=== PATIENT | female | born 2000 | race Caucasian/White ===

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

== ENCOUNTER 2021-09-16 12:42 | Outpatient (CLI) | payer BC, MEDICAID, SELFPAY ==
--- NOTE | 2021-09-16 12:47 | US_ITS ---
WS: [id number] ULTRASOUND THYROID TECHNIQUE: Ultrasound of the thyroid. CLINICAL INFORMATION: NONTOXIC GOITER/FAMILY HX OF OTHER ENDOCRINE DZ COMPARISON: None. FINDINGS: Thyroid: Right and left thyroid lobes are normal in size and echotexture. Complex heterogeneous cystic and solid nodule right mid thyroid with lobulated margins measures appro ximately 9.1 x 7.6 x 8.9 mm with increased vascularity. Internal echogenic foci of with cystic and so lid components. Recommend further evaluation with FNA. Tiny hypoechoic nodule left mid thyroid measuring 3.6 x 3.1 x 4.8 mm Right thyroid lobe: 4.6 cm x 1.7 cm x 1.5 cm Left thyroid lobe: 3.9 cm x 1.3 cm x 1.4 cm. Isthmus: 0.3 mm. Cervical lymphadenopathy: None. US/US thyroid [id number] IMPRESSION: 1. Complex heterogeneous cystic and solid nodule right mid thyroid measures ap proximately 9.1 x 7.6 x 8.9 mm with increased vascularity. Recommend further ev aluation with ultrasound-guided FNA. 2. Tiny hypoechoic nodule left mid thyroid measuring 3.6 x 3.1 x 4.8 mm
== END 2021-09-16 12:43 | disposition home or self-care (01) ==
LOC: RAD 12:45
PROVIDERS: PCP Nurse Practitioner Family; Visit Provider Student in an Organized Health Care Education/Training Program
DX: E04.9 Nontoxic goiter, unspecified (principal); Z83.49 Family history of other endocrine, nutritional and metabolic diseases; R79.89 Other specified abnormal findings of blood chemistry; E04.2 Nontoxic multinodular goiter
CPT/HCPCS: 76536

== ENCOUNTER 2022-04-26 08:08 | Emergency (ER) | payer BC, MEDICAID, SELFPAY ==
[2022-04-26 08:14] VITALS: BP 128/71; PULSE 112; RESP 14; TEMP 36.9; O2SAT 99; BMI 20.5
[2022-04-26 08:25] VITALS: BP 128/71; PULSE 112; RESP 14; TEMP 36.9; O2SAT 99
--- NOTE | 2022-04-26 08:39 | W.ED.ALLEREA ---
HPI - Allergic Reaction General: Chief complaint: Allergic Reaction Stated complaint: Allergic rx, itchiness and burning Time Seen by Provider: 04/26/22 08:26 History of Present Illness: HPI narrative: Patient comes in with a rash concerning for allergic reaction. States she woke up this morning with numerous erythematous papules on her extremities, and trunk. States that she took Benadryl which helped improve the itching. She denies any shortness of breath, difficulty swallowing, vomiting, or diarrhea. States no new medications or detergents/soap/shampoo. States that she did mow the lawn a couple of days ago and then last night her dog slept in the bed with her. Associated symptoms: Deny abdominal pain, nausea or vomiting Review of Systems Const: Denies: fever(s) or body aches Eyes: Denies: change in vision or blurry vision ENMT: Denies: throat pain or odynophagia Card: Denies: chest pain or palpitations Resp: Denies: dyspnea or productive cough GI: Denies: abdominal pain, nausea or vomiting : Denies: flank pain or dysuria Musc: Denies: neck pain or back pain Skin/Breast: Reports: rash and pruritus Neuro: Denies: headache(s) or numbness in extremities Psych: Denies: anxiety or change in appetite Endo: Denies: polyuria or excessive sweating PFSH ED PFSH: Medical History Anxiety Chronic sinusitis Depression GERD (gastroesophageal reflux disease) IBS (irritable bowel syndrome) Surgical History No history of previous surgery Family History Mother Graves disease ALS (amyotrophic lateral sclerosis) Lung disease Father GERD (gastroesophageal reflux disease) Hyperlipidemia Hypertension Anxiety Social History Smoking and tobacco status: current every day smoker e-cigarettes E-Cigarette Details: vaporizer device E-cig/vape details: uses twice a day Alcohol intake: never Physical Exam Const: COMMON NORMALS: no acute distress, patient oriented x3, healthy appearing and alert HENMT: COMMON NORMALS: normocephalic and atraumatic HEAD & SCALP: normocephalic and atraumatic Eye: COMMON NORMALS: Equal, round and reactive pupils present and EOMs intact bilaterally PUPIL: Yes Equal, round and reactive pupils present Neck/C-Spine: COMMON NORMALS: full ROM and supple Resp: COMMON NORMALS: normal respiratory effort, No retractions and No use of accessory muscles Cardio: COMMON NORMALS: regular rate and regular rhythm RATE: regular rate RHYTHM: regular rhythm GI: COMMON NORMALS: Normal to inspection, nondistended, normoactive bowel sounds present, Soft to palpation and non-tender PALPATION: Yes Soft to palpation Back/Pelvis: COMMON NORMALS: thoracic and lumbar spine normal to inspection and no thoracic nor lumbar tenderness Extremity: COMMON NORMALS: normal to inspection and full ROM Neuro: COMMON NORMALS: patient oriented x3 SENSORIUM/ORIENTATION: Yes alert Psych: COMMON NORMALS: mental status grossly normal and cooperative Skin: OTHER: Numerous erythematous papules on extremities and trunk consistent with hives Course Vital Signs: Vital signs: Vital Signs Temperature 98.5 F 04/26/22 08:25 Pulse Rate 112 H 04/26/22 08:25 Respiratory Rate 14 04/26/22 08:25 Blood Pressure 128/71 04/26/22 08:25 Pulse Oximetry 99 04/26/22 08:25 MDM - Allergic Reaction Medical Decision Making Patient comes in with a rash concerning for allergic reaction. States she woke up this morning with numerous erythematous papules on her extremities, and trunk. States that she took Benadryl which helped improve the itching. She denies any shortness of breath, difficulty swallowing, vomiting, or diarrhea. States no new medications or detergents/soap/shampoo. States that she did mow the lawn a couple of days ago and then last night her dog slept in the bed with her. We will start her on steroids, and discharged with precautions to return for worsening or changing symptoms. Discharge Plan Discharge Patient Disposition: Home Clinical Impression: Allergic reaction Condition: Stable Prescriptions: New prednisone 20 mg tablet 60 mg PO DAILY 4 Days Qty: 12 0RF No Action dicyclomine 10 mg capsule 20 mg PO QID 0RF Viibryd 10 mg tablet 10 mg PO DAILY 0RF Rx Instructions: must administer with a meal/food norgestimate-ethinyl estradiol [Ortho Tri-Cyclen (28)] 0.18/0.215/0.25 mg-35 mcg (28) tablet 1 tab PO DAILY 0RF omeprazole 20 mg capsule,delayed release(DR/EC) 20 mg PO DAILY 0RF Zyrtec 10 mg capsule 10 mg PO BID 0RF fluticasone propionate 50 mcg/actuation spray,suspension 1 spray intranasal BID 0RF Rx Instructions: administer into each nostril metoprolol tartrate 25 mg tablet 12.5 mg PO BID Qty: 90 3RF Discharge Orders: Discharge ED (Routine); Ordered 04/26/22 Ordered By: Ervin Huffman Referrals: Merlene Alcaraz FNP [Primary Care Provider] - Patient Instructions: Allergic Reaction 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
[2022-04-26] MEDS: predniSONE 20 mg Tablet 60 MG PO (08:41)
[2022-04-26 08:44] VITALS: BP 128/71; PULSE 112; RESP 14; TEMP 36.9; O2SAT 99
== END 2022-04-26 08:50 | disposition home or self-care (01) ==
PROVIDERS: Emergency Provider Emergency Medicine; PCP Nurse Practitioner Family
DX: T78.40XA Allergy, unspecified, initial encounter (principal)
CPT/HCPCS: 99283; J7512

== ENCOUNTER 2022-04-27 01:17 | Emergency (ER) | payer BC, MEDICAID, SELFPAY ==
[2022-04-27 01:24] VITALS: BP 123/68; PULSE 70; RESP 18; TEMP 36.6; O2SAT 100; BMI 20.2
--- NOTE | 2022-04-27 01:29 | W.ED.ALLEREA ---
HPI - Allergic Reaction General: Chief complaint: Allergic Reaction Stated complaint: allergic reaction Time Seen by Provider: 04/27/22 01:28 History of Present Illness: HPI narrative: 21-year-old female comes in today for complaints of itching and rash. Patient was seen on the at about 8:00 in the morning and was given 60 mg of prednisone for similar rash. Tonight patient had increased itching and burning of the skin and was concern for worsening rash. Patient appears nontoxic. Patient reports no pain. Patient does report a temperature of 99. Review of Systems General: Reports: 10 or more systems reviewed and unremarkable except in HPI and below Const: Reports: chills Card: Denies: chest pain Resp: Denies: dyspnea Skin/Breast: Reports: rash PFSH ED PFSH: Medical History Anxiety Chronic sinusitis Depression GERD (gastroesophageal reflux disease) IBS (irritable bowel syndrome) Surgical History No history of previous surgery Family History Mother Graves disease ALS (amyotrophic lateral sclerosis) Lung disease Father GERD (gastroesophageal reflux disease) Hyperlipidemia Hypertension Anxiety Social History Smoking and tobacco status: current every day smoker e-cigarettes E-Cigarette Details: vaporizer device E-cig/vape details: uses twice a day Alcohol intake: never Physical Exam Const: COMMON NORMALS: alert HENMT: COMMON NORMALS: normocephalic HEAD & SCALP: normocephalic THROAT: posterior oropharynx normal Neck/C-Spine: COMMON NORMALS: full ROM Resp: COMMON NORMALS: normal respiratory effort and clear to auscultation bilaterally AUSCULTATION: clear to auscultation bilaterally Cardio: COMMON NORMALS: regular rate and regular rhythm RATE: regular rate RHYTHM: regular rhythm GI: PALPATION: No Tenderness to palpation present (GI) Extremity: COMMON NORMALS: normal to inspection Neuro: SENSORIUM/ORIENTATION: Yes alert Skin: RASHES: rashes noted (Generalized urticaria) Course Vital Signs: Vital signs: Vital Signs Temperature 97.8 F 04/27/22 01:24 Pulse Rate 70 04/27/22 01:24 Respiratory Rate 18 04/27/22 01:24 Blood Pressure 123/68 04/27/22 01:24 Pulse Oximetry 100 04/27/22 01:24 MDM - Allergic Reaction Medical Decision Making Patient comes in this evening for increase in urticaria. Patient appears well. Patient appears in no acute distress. Lungs are clear to auscultation. Evaluation patient with no a generalized urticarial rash. Vital signs are normal. Differential diagnosis includes allergic reaction, adverse drug effect, idiopathic urticaria. Patient already been seen once in the last 24 hours and was started on prednisone. Patient was given a dose of Solu-Medrol and a dose of Benadryl this evening. Patient was also given 1 dose of famotidine 40 mg. Reviewed exam with patient with recommendations for continued treatment with hydroxyzine and continuation of prednisone as directed. Discussed need to drink plenty of fluids of medication and avoidance of extreme temperatures, spicy foods and acidic foods. Discussed need to return to the ER for shortness of breath. Discussed other recommendations for further treatment and evaluation with primary care. Discharge Plan Discharge Clinical Impression: Urticaria Condition: Stable Prescriptions: New hydroxyzine HCl 25 mg tablet 25 mg PO Q6H PRN (Reason: itching) Qty: 20 0RF No Action dicyclomine 10 mg capsule 20 mg PO QID 0RF Viibryd 10 mg tablet 10 mg PO DAILY 0RF Rx Instructions: must administer with a meal/food norgestimate-ethinyl estradiol [Ortho Tri-Cyclen (28)] 0.18/0.215/0.25 mg-35 mcg (28) tablet 1 tab PO DAILY 0RF omeprazole 20 mg capsule,delayed release(DR/EC) 20 mg PO DAILY 0RF Zyrtec 10 mg capsule 10 mg PO BID 0RF fluticasone propionate 50 mcg/actuation spray,suspension 1 spray intranasal BID 0RF Rx Instructions: administer into each nostril metoprolol tartrate 25 mg tablet 12.5 mg PO BID Qty: 90 3RF prednisone 20 mg tablet 60 mg PO DAILY 4 Days Qty: 12 0RF Referrals: Merlene Alcaraz FNP [Primary Care Provider] - Discharge Diet: Usual diet Discharge Activity: Increase activity as tolerated Patient Instructions: Urticaria (ED) Activity Restrictions/Additional Instructions: Continue with prednisone as prescribed. Drink plenty of water and fluids with medication. Use hydroxyzine 1 tablet every 6 hours as needed for itching. Continue with Zyrtec or Claritin twice a day routinely to help control rash. Usually urticarial take 3- 5 days to clear up. Follow-up with primary care for further instruction and referral for allergen evaluation if needed. Return to ER for difficulty breathing. 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
[2022-04-27 01:45] VITALS: BP 120/86; PULSE 73; RESP 18; O2SAT 100
[2022-04-27] MEDS: sodium chloride 0.9% 500 ML 999 ML IV (01:45)
[2022-04-27] MEDS: diphenhydrAMINE 50 mg/mL SDV 1mL 25 MG IVP (01:46)
[2022-04-27 02:15] VITALS: BP 120/70; PULSE 67; RESP 18; O2SAT 100
[2022-04-27] MEDS: famotidine 20 mg/2 mL INJ 40 MG IVP (02:19)
[2022-04-27 02:30] VITALS: BP 122/76; PULSE 86; RESP 18; O2SAT 96
== END 2022-04-27 02:30 | disposition home or self-care (01) ==
PROVIDERS: Emergency Provider Nurse Practitioner Family; PCP Nurse Practitioner Family
DX: L50.9 Urticaria, unspecified (principal)
CPT/HCPCS: 96361; 96374; 96375; 99284; J1200; J2930; J3490; J7040

== ENCOUNTER → 2022-10-20 15:27 | Outpatient (BNVA) | payer BC, MEDICAID, SELFPAY | PROVIDERS: PCP Nurse Practitioner Family; Visit Provider Nurse Practitioner Family | DX: R10.32 Left lower quadrant pain (principal) | CPT/HCPCS: 74018 ==

== ENCOUNTER 2023-03-25 01:51 | Emergency (ER) | payer BC, MEDICAID, SELFPAY ==
[2023-03-25 02:00] VITALS: BP 113/56; PULSE 82; RESP 16; TEMP 36.4; O2SAT 98; BMI 21.4
[2023-03-25 02:07] VITALS: BP 113/56; PULSE 83; RESP 16; O2SAT 100
--- NOTE | 2023-03-25 02:08 | W.ED.NAVMDI ---
HPI - Nausea/Vomiting/Diarrhea General: Chief complaint: Nausea/Vomiting/Diarrhea Stated complaint: n/v Time Seen by Provider: 03/25/23 01:58 Source: patient Mode of arrival: ambulatory Limitations: no limitations History of Present Illness: 22-year-old female states she started having nausea vomiting along with some diarrhea over the last 3 to 4 hours. States she had severe vomiting and vomited multiple times she has had some abdominal cramping she denies any fevers. She states she is a habitual cannabis abuser did last use this evening. Denies any fevers denies any dysuria. Associated nausea: Yes Associated symtoms: Reports nausea; Denies chest pain or dysuria Review of Systems Const: Denies: fever(s), chills, body aches or change in appetite Eyes: Denies: eye discomfort ENMT: Denies: throat pain or dental pain Card: Denies: chest pain Resp: Denies: dyspnea GI: Reports: abdominal pain, nausea and vomiting; Denies: diarrhea : Denies: dysuria Musc: Denies: neck pain or back pain Skin/Breast: Denies: rash All/Imm: Denies: urticaria PFSH ED PFSH: Medical History Anxiety Chronic sinusitis Depression GERD (gastroesophageal reflux disease) IBS (irritable bowel syndrome) Surgical History No history of previous surgery Family History Mother Graves disease ALS (amyotrophic lateral sclerosis) Lung disease Father GERD (gastroesophageal reflux disease) Hyperlipidemia Hypertension Anxiety Social History Smoking and tobacco status: current every day smoker e-cigarettes E-Cigarette Details: vaporizer device E-cig/vape details: uses twice a day Alcohol intake: never Substance/Drug Use: never Female Reproductive History: Date of last menstrual period: 03/18/23 Physical Exam Const: COMMON NORMALS: no acute distress, patient oriented x3 and healthy appearing HENMT: COMMON NORMALS: normocephalic and atraumatic HEAD & SCALP: normocephalic and atraumatic Eye: COMMON NORMALS: conjunctivae normal CONJUNCTIVA: Yes conjunctivae normal Neck/C-Spine: COMMON NORMALS: full ROM and supple Chest: COMMONS NORMALS: normal inspection of the chest Resp: COMMON NORMALS: normal respiratory effort, No retractions, No use of accessory muscles and clear to auscultation bilaterally AUSCULTATION: clear to auscultation bilaterally Cardio: COMMON NORMALS: regular rate, regular rhythm and No murmurs present (Cardio) RATE: regular rate RHYTHM: regular rhythm GI: COMMON NORMALS: Normal to inspection, nondistended, normoactive bowel sounds present, Soft to palpation, non-tender and no masses PALPATION: Yes Soft to palpation Extremity: COMMON NORMALS: normal to inspection and full ROM Neuro: COMMON NORMALS: patient oriented x3, moves all extremities and no focal motor deficits Psych: COMMON NORMALS: mental status grossly normal, Normal thought process present and cooperative THOUGHT PROCESS: Normal thought process present Skin: COMMON NORMALS: no rashes or lesions noted and no wounds GENERAL SKIN EXAM: no rashes or lesions noted Course Vital Signs: Vital signs: Vital Signs Temperature 97.5 F L 03/25/23 02:00 Pulse Rate 83 03/25/23 02:07 Respiratory Rate 16 03/25/23 02:58 Blood Pressure 122/68 03/25/23 02:58 Pulse Oximetry 99 03/25/23 02:58 Oxygen Delivery Me thod Room Air 03/25/23 02:00 MDM - Nausea/Vomiting/Diarrhea Medical Decision Making Patient presents here with nausea and vomiting that is resolved here after Reglan she feels much improved here after Reglan and fluids blood work here is normal she is stable for discharge we will prescribe her Zofran she is to follow-up with PCP and return if worsening. Lab Data 03/25/23 02:15 03/25/23 02:15 Laboratory Results WBC 8.8 10^3/uL (4.0-10.0) 03/25/23 02:15 RBC 4.09 10^6/uL (4.1-5.3) L 03/25/23 02:15 Hgb 11.7 g/dL (11.5-15.3) 03/25/23 02:15 Hct 34.8 % (37.0-47.0) L 03/25/23 02:15 MCV 85.1 fl (81-99) 03/25/23 02:15 MCH 28.6 pg (28.0-34.0) 03/25/23 02:15 MCHC 33.6 g/dL (30.0-36.0) 03/25/23 02:15 RDW 12.1 % (12.1-15.1) 03/25/23 02:15 Plt Count 209 10^3/cmm (130-400) 03/25/23 02:15 MPV 9.7 fL (7.4-10.4) 03/25/23 02:15 Neut % (Auto) 69.9 % 03/25/23 02:15 Lymph % (Auto) 25.4 % 03/25/23 02:15 Overton % (Auto) 3.9 % 03/25/23 02:15 Eos % (Auto) 0.5 % 03/25/23 02:15 Baso % (Auto) 0.1 % 03/25/23 02:15 Neut # (Auto) 6.14 10^3/uL (1.8-7.7) 03/25/23 02:15 Lymph # (Auto) 2.2 10^3/uL (0.8-4.8) 03/25/23 02:15 Overton # (Auto) 0.3 10^3/uL (0.2-0.9) 03/25/23 02:15 Eos # (Auto) 0.0 10^3/uL (0.0-0.8) 03/25/23 02:15 Baso # (Auto) 0.0 10^3/uL (0.0-0.1) 03/25/23 02:15 Nucleated RBC % (auto) 0 % 03/25/23 02:15 Nucleated RBCs # 0.0 /100WBC 03/25/23 02:15 Sodium 135 mmol/L (136-145) L 03/25/23 02:15 Potassium 3.4 mmol/L (3.5-5.1) L 03/25/23 02:15 Chloride 98 mmol/L (98-107) 03/25/23 02:15 Carbon Dioxide 23 mmol/L (22-29) 03/25/23 02:15 Anion Gap 17.4 (5-19) 03/25/23 02:15 BUN 9 mg/dL (6-20) 03/25/23 02:15 Creatinine 0.5 mg/dL (0.5-0.9) 03/25/23 02:15 GFR Calculation 155.7 mL/min (90-130) H 03/25/23 02:15 Glucose 140 mg/dL (65-115) H 03/25/23 02:15 Calculated Osmolality 281 mOsm/kg (285-295) L 03/25/23 02:15 Calcium 9.5 mg/dL (8.5-10.5) 03/25/23 02:15 Total Bilirubin 0.4 mg/dL (0.15-1.2) 03/25/23 02:15 AST 18 U/L (0-32) 03/25/23 02:15 ALT 10 U/L (0-33) 03/25/23 02:15 Alkaline Phosphatase 49 U/L (35-105) 03/25/23 02:15 Total Protein 7.2 g/dL (6.6-8.7) 03/25/23 02:15 Albumin 4.4 g/dL (3.5-5.2) 03/25/23 02:15 Globulin 2.8 g/dL (1.3-4.6) 03/25/23 02:15 HCG, Qual Negative (Negative) 03/25/23 02:15 Discharge Plan Discharge Patient Disposition: Home Clinical Impression: Vomiting Condition: Stable Prescriptions: New ondansetron 4 mg tablet,disintegrating 4 mg PO Q6H PRN (Reason: nausea and vomiting) Qty: 14 0RF No Action dicyclomine 10 mg capsule 20 mg PO QID Viibryd 10 mg tablet 10 mg PO DAILY Rx Instructions: must administer with a meal/food norgestimate-ethinyl estradiol [Ortho Tri-Cyclen (28)] 0.18/0.215/0.25 mg-35 mcg (28) tablet 1 tab PO DAILY omeprazole 20 mg capsule,delayed release(DR/EC) 20 mg PO DAILY Zyrtec 10 mg capsule 10 mg PO BID fluticasone propionate 50 mcg/actuation spray,suspension 1 spray intranasal BID Rx Instructions: administer into each nostril metoprolol tartrate 25 mg tablet 12.5 mg PO BID Qty: 90 3RF hydroxyzine HCl 25 mg tablet 25 mg PO Q6H PRN (Reason: itching) Qty: 20 0RF Discharge Orders: Discharge ED (Routine); Ordered 03/25/23 Ordered By: Kait Monae Referrals: Merlene Alcaraz FNP [Primary Care Provider] - 1-3 days Discharge Diet: Advance as tolerated Discharge Activity: Resume usual activity Patient Instructions: Acute Nausea and Vomiting (ED) Coding Level of Care Code ED Traffic Recorder for Catalino Leon
[2023-03-25] MEDS: diphenhydrAMINE 50 mg/mL SDV 1mL IVP (02:11)
[2023-03-25] MEDS: metoclopramide 5 mg/mL SDV 2 mL 10 MG IVP (02:11)
[2023-03-25] MEDS: sodium chloride 0.9% 1,000 ML 999 ML IV (02:11)
[2023-03-25 02:19] LABS: Basophils % 0.1 %; Eosinophils % 0.5 %; Hematocrit 34.8 % (37.0-47.0); Hemoglobin 11.7 g/dL (11.5-15.3); Lymphocytes # 2.2 10^3/uL (0.8-4.8); Lymphocytes % 25.4 %; Mean Corpuscular HGB Conc 33.6 g/dL (30.0-36.0); Mean Corpuscular Hemoglobin 28.6 pg (28.0-34.0); Mean Corpuscular Volume 85.1 fl (81-99); Mean Platelet Volume 9.7 fL (7.4-10.4); Monocytes # 0.3 10^3/uL (0.2-0.9); Monocytes % 3.9 %; Neutrophils # 6.14 10^3/uL (1.8-7.7); Neutrophils % 69.9 %; Nucleated Red Blood Cells % 0 %; Platelet Count 209 10^3/cmm (130-400); Red Blood Count 4.09 10^6/uL (4.1-5.3); Red Cell Distribution Width 12.1 % (12.1-15.1); White Blood Count 8.8 10^3/uL (4.0-10.0)
[2023-03-25 02:31] LABS: HCG, Serum Qual Negative (Negative)
[2023-03-25 02:35] LABS: Alanine Aminotransferase 10 U/L (0-33); Albumin Level 4.4 g/dL (3.5-5.2); Alkaline Phosphatase 49 U/L (35-105); Anion Gap 17.4 (5-19); Aspartate Amino Transferase 18 U/L (0-32); Blood Urea Nitrogen 9 mg/dL (6-20); Calcium 9.5 mg/dL (8.5-10.5); Carbon Dioxide 23 mmol/L (22-29); Chloride 98 mmol/L (98-107); Globulin 2.8 g/dL (1.3-4.6); Glomerular Filtration Rate 155.7 mL/min (90-130); Glucose 140 mg/dL (65-115); Osmolality Calculated 281 mOsm/kg (285-295); Potassium 3.4 mmol/L (3.5-5.1); Sodium 135 mmol/L (136-145); Total Bilirubin 0.4 mg/dL (0.15-1.2); Total Protein 7.2 g/dL (6.6-8.7)
[2023-03-25 02:58] VITALS: BP 122/68; RESP 16; O2SAT 99
[2023-03-25 03:07] LABS: Add Urine Culture? No; Add Urine Microscopic? YES; Bacteria Urine 2+ /hpf; Bilirubin Urine Neg (Negative); Blood Urine Neg (Negative); Glucose Urine UA Norm (Normal); Ketones Urine 2+ (Negative); Leukocyte Esterase Urine Negative (Negative); Mucus Urine 2+ /hpf; Nitrate Urine Negative (Negative); Protein Urine Neg (Negative); Urine Appearance Hazy (CLEAR); Urine Color Yellow (Yellow); Urobilinogen Urine Neg (Negative); WBC Urine 0-4 /hpf (0-5); pH Urine 7 (5-7)
[2023-03-25] MEDS: ondansetron 4 MG Tablet PO (03:08)
[2023-03-25 03:10] VITALS: BP 119/64; PULSE 73; RESP 16; O2SAT 100
--- NOTE | 2023-03-25 03:12 | PC.NURSE ---
After discussing discharge w/ MD, pt opted to not wait for the 2nd ordered L of 0.9% NS and stated this to MD. Pt stated that she was feeling better and just needed some sleep. Nurse confirmed this wish with pt. Pt discharged home.
[2023-03-25 03:17] VITALS: BP 119/64; PULSE 73; RESP 16; TEMP 36.4; O2SAT 100
== END 2023-03-25 03:17 | disposition home or self-care (01) ==
PROVIDERS: Emergency Provider Emergency Medicine; PCP Nurse Practitioner Family
DX: R11.10 Vomiting, unspecified (principal)
CPT/HCPCS: 80053; 81001; 84703; 85025; 96361; 96374; 96375; 99284; J1200; J2765; J7030; Q0162

== ENCOUNTER → 2023-05-02 11:30 | Outpatient (BNVA) | payer BC, MEDICAID, SELFPAY | PROVIDERS: PCP Nurse Practitioner Family; Visit Provider Nurse Practitioner Family | DX: M79.672 Pain in left foot (principal) | CPT/HCPCS: 73620 ==

== ENCOUNTER 2024-02-09 06:39 | Outpatient (CLI) | payer BC, MEDICAID, SELFPAY ==
--- NOTE | 2024-02-09 06:45 | US_ITS ---
WS: [id number] RIGHT UPPER QUADRANT ULTRASOUND HISTORY: epigastric pain COMPARISON: None available. Liver: 15.0 cm in length. Normal size liver and echogenicity. No bile duct dilatation or mass. Portal Vein: Normal hepatopetal flow with monophasic waveform. Gallbladder: Normally distended with no stones. No wall thickening. There is a tiny gallbladder polyp measuring 3 x 3 x 2 mm. CBD: 0.3 cm Pancreas: Normal size and echogenicity. Right kidney: 11.2 cm in length. Normal size and echogenicity. No hydronephrosis or mass. Aorta and IVC: Unremarkable abdominal aorta and IVC. No ascites. IMPRESSION: 1. Very tiny hyperplastic gallbladder polyp. No stones. 2. Remaining RIGHT upper quadrant is negative.
== END 2024-02-09 06:40 | disposition home or self-care (01) ==
LOC: RAD 06:39
PROVIDERS: PCP Nurse Practitioner Family; Visit Provider Surgery
DX: K21.9 Gastro-esophageal reflux disease without esophagitis (principal); K82.4 Cholesterolosis of gallbladder
CPT/HCPCS: 76705

== ENCOUNTER 2024-03-14 10:58 | Day surgery (SDC) | payer BC, MEDICAID, SELFPAY ==
[2024-03-14] MEDS: sodium chloride 0.9% 1,000 ML 30 ML IV (11:22)
[2024-03-14 11:36] VITALS: BP 129/59; PULSE 64; RESP 18; TEMP 36.8; O2SAT 99
[2024-03-14 11:38] VITALS: BMI 23.1
[2024-03-14 11:41] LABS: OR HCG Qualitative Urine Negative (Negative)
--- NOTE | 2024-03-14 12:44 | ANES.PREANE2 ---
Pre-Anesthetic Assessment Height/Weight: Height 1.63 m Weight 61.235 kg Temp Pulse Resp BP Pulse Ox O2 Del Method 98.2 F 64 18 129/59 99 Room Air 03/14/24 11:36 03/14/24 11:36 03/14/24 11:36 03/14/24 11:36 03/14/24 11:36 03/14/24 11:36 Preop Diagnosis: gerd Operation Date: 03/14/24 12:15 Proposed Procedures p EGD(Not Applicable) - Ady Miranda, DO Was Beta Raymon taken within 24 hours: N/A Was Clonidine taken within 24 hours: N/A Last intake: Intake Last Liquid Date 03/13/24 Last Liquid Time 22:30 Last Solid Date 03/13/24 Last Solid Time 21:30 Social No alcohol vapes, thc daily Exam alert, oriented x 3, clear to auscultation bilaterally and regular rate & rhythm Airway Submandibular: within normal limits Cervical ROM: within normal limits Mallampati: Class II Comments: Comments: broken tooth upper left History/ROS No significant history except as noted and No significant complaints Pulmonary None reported CV/HEM None reported None reported Hepatic None reported GI Gastroesophageal Reflux Disease Metabolic Thyroid Disease hyperthyroid, unable to lay flat at night to sleep because of pressure Musc/skel None reported Neuropsych Anxiety Anesthetic Plan ASA status: 2 Anesthesia: Anesthesia Evaluation and MAC Risk of > 500 ml blood loss (7ml/kg in children): Yes, adequate IV access and fluids planned Medications/Allergies Home Medications Medication Instructions Recorded Confirmed Last Taken Type cetirizine 10 mg capsule (Zyrtec) 10 mg PO BID 12/23/20 03/14/24 1 Month Ago History ~02/03/24 fluticasone propionate 50 1 spray intranasal BID 12/23/20 03/14/24 1 Month Ago History mcg/actuation nasal ~02/03/24 spray,suspension norgestimate-ethinyl estradiol 1 tab PO DAILY 12/23/20 03/14/24 03/13/24 History 0.18 mg/0.215mg/0.25mg-35 mcg(28)tablet (Ortho Tri-Cyclen (28)) vilazodone 10 mg tablet (Viibryd) 10 mg PO DAILY 12/23/20 03/14/24 03/14/24 History ondansetron 4 mg disintegrating 4 mg PO Q6H PRN nausea and 03/25/23 03/14/24 2 Weeks Ago Rx tablet vomiting #14 tabs ~02/20/24 dicyclomine 10 mg capsule 20 mg PO QID PRN Diarrhea 02/06/24 03/14/24 03/14/24 History pantoprazole 40 mg tablet,delayed 40 mg PO BID 6 weeks #84 tabs 02/06/24 03/14/24 03/14/24 Rx release (Protonix) lurasidone 20 mg tablet 40 mg PO QPM 03/05/24 03/14/24 03/13/24 History Allergies Allergy/AdvReac Type Severity Reaction Status Date / Time Sulfa (Sulfonamide Allergy ADR-Nausea Verified 03/14/24 11:17 Antibiotics) Current Medications Generic Name Dose Route Start Last Admin Trade Name Freq PRN Reason Stop Dose Admin Sodium Chloride 1,000 mls @ 30 mls/hr 03/14/24 11:15 03/14/24 11:22 Sodium Chloride 0.9% IV 03/15/24 11:14 30 mls/hr .Q24H ANNETTE Administration PFSH Anesthesia Medical History (Updated 02/06/24 @ 10:10 by Ady Miranda DO) Anxiety Depression IBS (irritable bowel syndrome) GERD (gastroesophageal reflux disease) Chronic sinusitis Surgical History (Updated 02/06/24 @ 10:10 by Ady Miranda DO) Hx of wisdom tooth extraction No history of previous surgery Family History Mother Graves disease ALS (amyotrophic lateral sclerosis) Lung disease Father GERD (gastroesophageal reflux disease) Hyperlipidemia Hypertension Anxiety Social History Smoking and tobacco/nicotine status: former use of tobacco/nicotine Alcohol intake: never Substance/Drug Use: never Data Anesthesia Cardiac Studies: No Data to Display
--- NOTE | 2024-03-14 12:53 | P.HP_ITS ---
Providers/Chief Complaint Primary Care Provider: Merlene Alcaraz HONE OPERATOR Chief Complaint: K21.9, R10.13 History of Present Illness Megan Rodriguez is a 23 year old female Review of Systems General: Reports: 10 or more systems reviewed and unremarkable except in HPI and below Medications/Allergies Home Medications Medication Instructions Recorded Confirmed Last Taken Type cetirizine 10 mg capsule (Zyrtec) 10 mg PO BID 12/23/20 03/14/24 1 Month Ago History ~02/03/24 fluticasone propionate 50 1 spray intranasal BID 12/23/20 03/14/24 1 Month Ago History mcg/actuation nasal ~02/03/24 spray,suspension norgestimate-ethinyl estradiol 1 tab PO DAILY 12/23/20 03/14/24 03/13/24 History 0.18 mg/0.215mg/0.25mg-35 mcg(28)tablet (Ortho Tri-Cyclen (28)) vilazodone 10 mg tablet (Viibryd) 10 mg PO DAILY 12/23/20 03/14/24 03/14/24 History ondansetron 4 mg disintegrating 4 mg PO Q6H PRN nausea and 03/25/23 03/14/24 2 Weeks Ago Rx tablet vomiting #14 tabs ~02/20/24 dicyclomine 10 mg capsule 20 mg PO QID PRN Diarrhea 02/06/24 03/14/24 03/14/24 History pantoprazole 40 mg tablet,delayed 40 mg PO BID 6 weeks #84 tabs 02/06/24 03/14/24 03/14/24 Rx release (Protonix) lurasidone 20 mg tablet 40 mg PO QPM 03/05/24 03/14/24 03/13/24 History Allergies Allergy/AdvReac Type Severity Reaction Status Date / Time Sulfa (Sulfonamide Allergy ADR-Nausea Verified 03/14/24 11:17 Antibiotics) PFSH Acute PFSH: Medical History (Updated 03/14/24 @ 12:54 by Ady Miranda DO) Anxiety Depression IBS (irritable bowel syndrome) GERD (gastroesophageal reflux disease) Chronic sinusitis Surgical History (Updated 02/06/24 @ 10:10 by Ady Miranda DO) Hx of wisdom tooth extraction No history of previous surgery Family History Mother Graves disease ALS (amyotrophic lateral sclerosis) Lung disease Father GERD (gastroesophageal reflux disease) Hyperlipidemia Hypertension Anxiety Social History Smoking and tobacco/nicotine status: former use of tobacco/nicotine Alcohol intake: never Substance/Drug Use: never Vitals/I&O/Wt Last Vital Signs Temp 98.2 F 03/14/24 11:36 Pulse 64 03/14/24 11:36 Resp 18 03/14/24 11:36 BP 129/59 03/14/24 11:36 Pulse Ox 99 03/14/24 11:36 O2 Del Method Room Air 03/14/24 11:36 Weight last 48 hrs Weight 135 lb A&P Assessment and plan (1) Epigastric pain: (2) GERD (gastroesophageal reflux disease): Plan egd Attestations Medical Necessity Statement*: Home Coding Level of Care Code Acute Code for Chg Fwd Diagnoses Epigastric pain R10.13 GERD (gastroesophageal reflux disease) K21.9
[2024-03-14 13:04] VITALS: BP 101/49; PULSE 55; RESP 14; TEMP 36.3; O2SAT 95
[2024-03-14 13:17] VITALS: BP 112/58; PULSE 56; RESP 16; O2SAT 99
--- NOTE | 2024-03-14 14:10 | ANE.PACU2 ---
Inpatient post-anesthesia follow up: Vital signs: Temperature 97.4 F Pulse Rate 56 Respiratory Rate 16 Blood Pressure 112/58 Pulse Oximetry 99 Oxygen Delivery Me thod Room Air Oxygen Flow Rate Fraction of Inspir ed Oxygen Hydration adequate: Yes Nausea and vomiting: No Mental status: Baseline Additional Comments: no known anesthetic complications noted
== END 2024-03-14 13:36 | disposition home or self-care (01) ==
PROVIDERS: Anesthesiology; PCP Nurse Practitioner Family; Visit Provider Surgery
PROC: 0DJ08ZZ Inspection of Upper Intestinal Tract, Via Natural or Artificial Opening Endoscopic (ICD-10-PCS; CPT 43235; principal; 2024-03-14 12:15)
DX: R10.13 Epigastric pain (principal); K21.9 Gastro-esophageal reflux disease without esophagitis; K29.50 Unspecified chronic gastritis without bleeding; Z87.891 Personal history of nicotine dependence
CPT/HCPCS: 43239; 84703; 88305; 88342; J2704; J3010; J7030

== ENCOUNTER 2024-03-29 09:54 | Outpatient (CLI) | payer BC, MEDICAID, SELFPAY ==
--- NOTE | 2024-03-29 10:00 | NM_ITS ---
WS: [id number] NUCLEAR MEDICINE HIDA SCAN CLINICAL INFORMATION: epigastric pain TECHNIQUE: Following intravenous administration of 8.0 mCi of technetium 99m mebrofenin, images of th e abdomen were obtained over the course of 60 minutes. Next, gallbladder ejection fraction was determ ined by obtaining preprandial and one-hour postprandial images of the gallbladder following oral dominique stion of Ensure. COMPARISON: None. FINDINGS: Hepatomegaly. Normal hepatic uptake at 5 minutes. Normal hepatic excretion. Gallbladder is visualized by 10 minutes. No evidence of acute cholecystitis. Normal common bile duct and small bowel activity. Gallbladder ejection fraction is 75% within normal limits. No evidence of chronic cholecystitis. NM/NM hepatobiliary w phar* [id number] IMPRESSION: 1. No evidence of acute or chronic cholecystitis. 2. Gallbladder ejection fraction is 75% within normal limits.
== END 2024-03-29 09:55 | disposition home or self-care (01) ==
LOC: RAD 09:54
PROVIDERS: PCP Nurse Practitioner Family; Visit Provider Surgery
DX: R10.13 Epigastric pain (principal)
CPT/HCPCS: 78227; A9537

== ENCOUNTER 2024-04-12 05:42 | Day surgery (SDC) | payer BC, MEDICAID, SELFPAY ==
[2024-04-12] VITALS (10 sets, daily range): BP systolic 105–135; BP diastolic 53–68; PULSE 63–83; RESP 10–18; TEMP 36.4–37.3; O2SAT 96–100; BMI 21.4
[2024-04-12 06:22] LABS: OR HCG Qualitative Urine Negative (Negative)
--- NOTE | 2024-04-12 06:38 | P.ANESASSM_ITS ---
Pre-Anesthetic Assessment Height/Weight: Height 1.63 m Weight 56.699 kg Temp Pulse Resp BP Pulse Ox O2 Del Method 99.1 F 83 18 105/53 97 Room Air 04/12/24 06:04 04/12/24 06:04 04/12/24 06:04 04/12/24 06:04 04/12/24 06:04 04/12/24 06:05 Operation Date: 04/12/24 07:00 Proposed Procedures p Laparoscopic Cholecystectomy 69233, K80.50(Not Applicable) - Ady Miranda DO Familial anesthetic complications: none Was Beta Raymon taken within 24 hours: N/A Was Clonidine taken within 24 hours: N/A Last intake: Intake Last Liquid Date 04/11/24 Last Liquid Time 22:30 Last Solid Date 04/11/24 Last Solid Time 19:00 Social No alcohol and No tobacco Smokes jann Airway Submandibular: within normal limits Cervical ROM: within normal limits Mallampati: Class II Dentition: chipped Comments: Comments: Multiple caries GI Gastroesophageal Reflux Disease IBS Neuropsych Anxiety and Depression Anesthetic Plan ASA status: 2 Anesthesia: General Medications/Allergies Home Medications Medication Instructions Recorded Confirmed Last Taken Type fluticasone propionate 50 1 spray intranasal BID PRN 12/23/20 04/12/24 04/11/24 History mcg/actuation nasal allergies spray,suspension norgestimate-ethinyl estradiol 1 tab PO QPM 12/23/20 04/11/24 04/11/24 History 0.18 mg/0.215mg/0.25mg-35 mcg(28)tablet (Ortho Tri-Cyclen (28)) ondansetron 4 mg disintegrating 4 mg PO Q6H PRN nausea and 03/25/23 04/11/24 04/09/24 Rx tablet vomiting #14 tabs dicyclomine 10 mg capsule 20 mg PO QID 02/06/24 04/11/24 04/11/24 History pantoprazole 40 mg tablet,delayed 40 mg PO BID 6 weeks #84 tabs 02/06/24 04/11/24 04/11/24 Rx release (Protonix) lurasidone 20 mg tablet 40 mg PO QPM 03/05/24 04/11/24 04/11/24 History venlafaxine 37.5 mg tablet 37.5 mg PO DAILY 04/11/24 04/12/2404/11/24 History Allergies Allergy/AdvReac Type Severity Reaction Status Date / Time Sulfa (Sulfonamide Allergy ADR-Nausea Verified 04/11/24 08:47 Antibiotics) [facility] Anesthesia Medical History Anxiety Depression IBS (irritable bowel syndrome) GERD (gastroesophageal reflux disease) Chronic sinusitis Surgical History Hx of wisdom tooth extraction No history of previous surgery Family History Mother Graves disease ALS (amyotrophic lateral sclerosis) Lung disease Father GERD (gastroesophageal reflux disease) Hyperlipidemia Hypertension Anxiety Social History Smoking and tobacco/nicotine status: current some day tobacco/nicotine user Alcohol intake: never Substance/Drug Use: current Substance/Drug use frequency: few times a week Data Anesthesia Cardiac Studies: No Data to Display
--- NOTE | 2024-04-12 06:50 | W.PM.OPSUD ---
Surgery/Procedure H&P Update DATE OF PROCEDURE: April 12, 2024 DATE H&P PERFORMED: 03/30/24 H&P UPDATE INFORMATION: I have reviewed H&P completed within last 30 days, I have examined patient prior to procedure and No changes to prior documentation PLANNED PROCEDURE: Operation Date: 04/12/24 07:00 Proposed Procedures p Laparoscopic Cholecystectomy 85825, K80.50(Not Applicable) - Ady Miranda, DO
[2024-04-12] MEDS: ceFAZolin 2,000 MG in sodium chloride 0.9% (plus) 50 ML 100 MG IV (06:57)
[2024-04-12] MEDS: lidocaine-epi 2% PF 1:200,000 20 mL SDV XX (07:28)
--- NOTE | 2024-04-12 07:38 | P.OP_ITS ---
Operative Report Date of procedure: April 12, 2024 Surgeon: Ady Miranda DO Brief History: This is a very pleasant 23-year-old female presented my office with biliary colic. Laparoscopic cholecystectomy was indicated. The risk and benefits of the procedure, especially the fact that there is a 20 to 30% chance that cholecystectomy does not relieve all of her symptoms, were explained to the patient. She is understand the risks and wished to proceed. Procedure: Preoperative diagnosis: Biliary colic Postoperative diagnosis: Same Procedure performed: Laparoscopic cholecystectomy Surgeon: Dr. Ady Miranda DO Estimated blood loss: 5 mL Specimens: Gallbladder to pathology Complications: None apparent Description of procedure: Patient was wheeled into the operative room and placed on the OR table in a supine position. Abdomen was inspected prepped and draped in usual sterile fashion. Time-out was performed and all present were in agreement. A 15 blade scalp was used to make a stab incision in the left upper quadrant and intra- abdominal insufflation was achieved using a Veress needle. After localizing the tissue incisions were made and a 5 millimeter trocar was placed into the umbilicus as well as 2 in the right upper quadrant. A 12 millimeter trocar was placed in the epigastrium. Gallbladder was grasped and elevated. The triangle of Calot was carefully dissected using blunt dissection and electrocautery until the triangle of Calot clearly identified. The cystic duct was clipped proximally and double clipped distally. The duct was then ligated proximally. The cystic artery was doubly clipped and ligated. The gallbladder was then removed from the liver bed using electrocautery. The gallbladder was removed from the abdomen using an Endo-Catch bag through the epigastric incision. The liver bed was inspected and no bleeding was seen. The abdomen was irrigated and suctioned. All ports removed. Skin was washed and dried. Incisions were c losed with 4-0 Monocryl in a subcuticular interrupted fashion. Skin glue was applied. Patient tolerated the procedure well.
[2024-04-12] MEDS: diphenhydrAMINE 50 mg/mL SDV 1mL 12.5 MG IVP (08:01)
[2024-04-12] MEDS: metoclopramide 5 mg/mL SDV 2 mL 10 MG (08:01)
[2024-04-12] MEDS: HYDROcodone-acetaminophen 7.5-325 mg Tablet 1 TAB PO (08:35)
[2024-04-12] MEDS: sodium chloride 0.9% 1,000 ML 30 ML IV (09:07)
--- NOTE | 2024-04-12 13:49 | ANE.PACU2 ---
Inpatient post-anesthesia follow up: Airway intact: Yes Vital signs: Temperature 99 F Pulse Rate 72 Respiratory Rate 18 Blood Pressure 122/57 Pulse Oximetry 98 Oxygen Delivery Me thod Room Air Oxygen Flow Rate 6 Fraction of Inspir ed Oxygen Hydration adequate: Yes Nausea and vomiting: No Pain level: 2 Mental status: Baseline
== END 2024-04-12 08:57 | disposition home or self-care (01) ==
PROVIDERS: Anesthesiology; PCP Nurse Practitioner Family; Visit Provider Surgery
PROC: 0FT44ZZ Resection of Gallbladder, Percutaneous Endoscopic Approach (ICD-10-PCS; CPT 47562; principal; 2024-04-12 07:00)
DX: K81.1 Chronic cholecystitis (principal)
CPT/HCPCS: 47562; 81025; 88304; J0690; J1100; J1200; J2250; J2405; J2704; J2765; J3010; J3490; J7030

== ENCOUNTER 2024-04-14 03:30 | Emergency (ER) | payer BC, MEDICAID, SELFPAY ==
[2024-04-14 03:48] VITALS: BP 135/84; PULSE 73; RESP 14; O2SAT 100; BMI 21.4
--- NOTE | 2024-04-14 04:13 | ED_ITS ---
HPI - Nausea/Vomiting/Diarrhea 2 General: Chief complaint: Nausea/Vomiting/Diarrhea Stated complaint: gallbladder removed 2 days, keep nothing down Time Seen by Provider: 04/14/24 04:12 History of Present Illness: 23-year-old female who is two days statu s post laparoscopic cholecystectomy. She states that she has not been able to keep solid food down, and is vomiting most liquids as well. She is not running a fever. She has not experienced a significant increase in pain.no diarrhea Associated nausea: Yes Associated symtoms: Reports nausea; Denies chest pain Review of Systems 2 Const: Denies: fever(s) Card: Denies: chest pain Resp: Denies: dyspnea GI: Reports: abdominal pain, nausea and vomiting PFSH ED 2 PFSH: Medical History Anxiety Depression IBS (irritable bowel syndrome) GERD (gastroesophageal reflux disease) Chronic sinusitis Surgical History Hx of wisdom tooth extraction No history of previous surgery Family History Mother Graves disease ALS (amyotrophic lateral sclerosis) Lung disease Father GERD (gastroesophageal reflux disease) Hyperlipidemia Hypertension Anxiety Social History Smoking and tobacco/nicotine status: current some day tobacco/nicotine user Alcohol intake: never Substance/Drug Use: current Substance/Drug use frequency: few times a week Physical Exam 2 Const: COMMON NORMALS: no acute distress GENERAL APPEARANCE: cooperative; not frail appearing HENMT: COMMON NORMALS: normocephalic, atraumatic and Normal external nose present HEAD & SCALP: normocephalic and atraumatic FACE & SINUS: normal facial exam and face symmetric NOSE: Normal external nose present Eye: COMMON NORMALS: Equal, round and reactive pupils present and EOMs intact bilaterally PUPIL: Yes Equal, round and reactive pupils present Neck/C-Spine: GENERAL: Yes trachea midline Chest: CHEST: Yes Symmetrical chest wall rise Breast/axilla inspection: No abnormal inspection of the axilla Resp: COMMON NORMALS: normal respiratory effort, No retractions, No use of accessory muscles and clear to auscultation bilaterally AUSCULTATION: clear to auscultation bilaterally Cardio: COMMON NORMALS: regular rate and regular rhythm RATE: regular rate RHYTHM: regular rhythm GI: COMMON NORMALS: Soft to palpation INSPECTION: Yes abdominal distension (mild) PALPATION: Yes Soft to palpation and Yes Tenderness to palpation present (GI) Extremity: COMMON NORMALS: no pedal edema Neuro: NEO COMA SCALE: document GCS findings Neo coma scale eye opening: Spontaneous Roc[place]le coma scale verbal response: Orientated [place] coma scale motor response: Obey commands Neo coma scale total score: 15 S ENSORY EXAM: Yes extremities (intact) Psych: COMMON NORMALS: speech normal SPEECH: Yes normal speech Skin: COMMON NORMALS: no rashes or lesions noted GENERAL SKIN EXAM: no rashes or lesions noted Course 2 Vital Signs: Vital signs: Vital Signs Pulse Rate 74 04/14/24 05:38 Respiratory Rate 18 04/14/24 05:38 Blood Pressure 122/72 04/14/24 05:38 Pulse Oximetry 98 04/14/24 05:38 Oxygen Delivery Me thod Room Air 04/14/24 05:21 MDM - Nausea/Vomiting/Diarrhea Medical Decision Making no vomiting since has been here. The patient has received intervenous fluids, anti-emetics. CT scan does not reveal any acute pathology. Post surgical changes. She'll be a allowed discharge on Zofran. Liquid diet. Return for problems. Lab Data 04/14/24 04:30 04/14/24 04:30 Radiology Impressions Abdomen/Pelvis CT 04/14/24 04:13 IMPRESSION: Small volume pneumoperitoneum and pelvic free fluid, presumably postsurgical. Laboratory Results WBC 11.62 10^3/uL (3.29-11.43) H 04/14/24 04:30 RBC 4.23 10^6/uL (3.85-5.65) 04/14/24 04:30 Hgb 12.20 g/dL (11.27-16.99) 04/14/24 04:30 Hct 36.6 % (36-47) 04/14/24 04:30 MCV 86.5 fl (85-98) 04/14/24 04:30 MCH 28.8 pg (27-33) 04/14/24 04:30 MCHC 33.3 g/dL (30-55) 04/14/24 04:30 RDW 12.4 % (12.1-15.1) 04/14/24 04:30 Plt Count 229 10^3/cmm (157-399) 04/14/24 04:30 MPV 10.2 fL (7.4-10.4) 04/14/24 04:30 Neut % (Auto) 80.7 % 04/14/24 04:30 Lymph % (Auto) 13.9 % 04/14/24 04:30 [place]ier % (Auto) 5.0 % 04/14/24 04:30 Eos % (Auto) 0.0 % 04/14/24 04:30 Baso % (Auto) 0.1 % 04/14/24 04:30 Neut # (Auto) 9.37 10^3/uL (1.8-7.7) H 04/14/24 04:30 Lymph # (Auto) 1.6 10^3/uL (0.8-4.8) 04/14/24 04:30 Lanier # (Auto) 0.6 10^3/uL (0.2-0.9) 04/14/24 04:30 Eos # (Auto) 0.0 10^3/uL (0.0-0.8) 04/14/24 04:30 Baso # (Auto) 0.0 10^3/uL (0.0-0.1) 04/14/24 04:30 Nucleated RBC % (auto) 0 % 04/14/24 04:30 Nucleated RBCs # 0.0 /100WBC 04/14/24 04:30 Sodium 133 mmol/L (136-145) L 04/14/24 04:30 Potassium 3.2 mmol/L (3.5-5.1) L 04/14/24 04:30 Chloride 96 mmol/L (98-107) L 04/14/24 04:30 Carbon Dioxide 25 mmol/L (22-29) 04/14/24 04:30 Anion Gap 15.2 (5-19) 04/14/24 04:30 BUN 8 mg/dL (6-20) 04/14/24 04:30 Creatinine 0.5 mg/dL (0.5-0.9) 04/14/24 04:30 GFR Calculation 154.3 mL/min (90-130) H 04/14/24 04:30 Glucose 117 mg/dL (65-115) H 04/14/24 04:30 Calculated Osmolality 275 mOsm/kg (285-295) L 04/14/24 04:30 Calcium 9.5 mg/dL (8.5-10.5) 04/14/24 04:30 Total Bilirubin 0.5 mg/dL (0.15-1.2) 04/14/24 04:30 AST 17 U/L (0-32) 04/14/24 04:30 ALT 17 U/L (0-33) 04/14/24 04:30 Alkaline Phosphatase 55 U/L (35-105) 04/14/24 04:30 C-Reactive Protein 3.0 mg/L (0.0-4.9) 04/14/24 04:30 Total Protein 7.4 g/dL (6.6-8.7) 04/14/24 04:30 Albumin 4.4 g/dL (3.5-5.2) 04/14/24 04:30 Globulin 3.0 g/dL (1.3-4.6) 04/14/24 04:30 Lipase 29 U/L (13-60) 04/14/24 04:30 HCG, Qual Negative (Negative) 04/14/24 04:30 All radiology interpretation(s) finalized by discharge Discharge Plan Discharge Patient Disposition: Home Clinical Impression: Post-operative nausea and vomiting Condition: Stable Prescriptions: Continued ondansetron 4 mg tablet,disintegrating 4 mg PO Q6H PRN (Reason: nausea and vomiting) Qty: 14 0RF No Action dicyclomine 10 mg capsule 20 mg PO QID norgestimate-ethinyl estradiol [Ortho Tri-Cyclen (28)] 0.18/0.215/0.25 mg-35 mcg (28) tablet 1 tab PO QPM fluticasone propionate 50 mcg/actuation spray,suspension 1 spray intranasal BID PRN (Reason: allergies) Rx Instructions: administer into each nostril pantoprazole [Protonix] 40 mg tablet,delayed release (DR/EC) 40 mg PO BID 42 Days Qty: 84 1RF tramadol 50 mg tablet 100 mg PO Q6H PRN (Reason: pain) Qty: 30 0RF Rx Instructions: 1-2 tabs q8h prn pain lurasidone 20 mg Tablet 40 mg PO QPM Rx Instructions: must administer with food (at least 350 calories) venlafaxine 37.5 mg Tablet 37.5 mg PO DAILY Rx Instructions: hasn't taken yet hydrocodone-acetaminophen 7.5-325 mg tablet 1 tab PO Q6H PRN (Reason: pain) Qty: 20 0RF Colace 100 mg capsule 100 mg PO BID Qty: 14 0RF Miralax 17 gram/dose powder 17 g PO DAILY 6 Days Qty: 119 0RF Discharge Orders: Discharge ED (Routine); Ordered 04/14/24 Ordered By: Judson Lennon Referrals: Merlene Alcaraz FNP [Primary Care Provider] - 1-3 days Patient Instructions: Acute Nausea and Vomiting (ED), Opioid Safety, Pain Management Activity Restrictions/Additional Instructions: Take nausea medication scheduled whether you are nauseated or not for the next 48 hours, then as needed following. Follow a liquid diet for the first 24 hours, if no vomiting, you may add solid food back into your diet. Return for fever, worsening pain, other concerning symptoms. 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
--- NOTE | 2024-04-14 04:13 | CTR_ITS ---
PROCEDURE INFORMATION: Exam: CT Abdomen And Pelvis With Contrast Exam date and time: 04/14/2024 4:34 AM Age: 23 years old Clinical indication: Nausea and vomiting; Abdominal pain; Localized; Prior surgery; Surgery date: Post-operative (0-2 days); Surgery type: Gb two days ago; Patient HX: C/O upper abd pain with n/v. Cholecystectomy two days ago. ; Additional info: Abd pain vomiting after cholecystectomy TECHNIQUE: Imaging protocol: Computed tomography of the abdomen and pelvis with contrast. Radiation optimization: All CT scans at this facility use at least one of these dose optimization techniques: automated exposure control; mA and/or kV adjustment per patient size (includes targeted exams where dose is matched to clinical indication); or iterative reconstruction. Contrast material: OMNI 350; Contrast volume: 80 ml; Contrast route: INTRAVENOUS (IV); COMPARISON: CR XR KUB [id number] 10/20/2022 3:31 PM RADIATION DOSE METRICS: Total DLP (mGy-cm): 337.22 FINDINGS: Liver: Normal appearance of the liver. Gallbladder and bile ducts: Status post cholecystectomy. Pancreas: No ductal dilation. Spleen: Unremarkable. Adrenal glands: Unremarkable. Kidneys and ureters: No hydronephrosis. Stomach and bowel: No obstruction. No mucosal thickening. Appendix: Appendix is not definitely seen, however there is no inflammatory change in the right lower quadrant to suggest appendicitis. Intraperitoneal space: Small volume pneumoperitoneum and pelvic free fluid, presumably postsurgical. Vasculature: Unremarkable. Lymph nodes: No enlarged lymph nodes. Urinary bladder: Unremarkable as visualized. Reproductive: Unremarkable as visualized. Bones/joints: Unremarkable. No acute fracture. Soft tissues: Fat stranding and trace subcutaneous gas in abdominal, likely postsurgical. CT/CT abdomen pelvis w con* [id number] IMPRESSION: Small volume pneumoperitoneum and pelvic free fluid, presumably postsurgical.
[2024-04-14] MEDS: sodium chloride 0.9% 1,000 ML 999 ML IV (04:34)
[2024-04-14] MEDS: ondansetron 2 mg/ML SDV 2 mL 4 MG IVP (04:34)
[2024-04-14 04:35] VITALS: BP 119/67; RESP 16; O2SAT 97
[2024-04-14] MEDS: iohexol 350 mg/mL 500 mL Btl (per mL) IV (04:37)
[2024-04-14 04:39] LABS: Basophils % 0.1 %; Hematocrit 36.6 % (36-47); Lymphocytes # 1.6 10^3/uL (0.8-4.8); Lymphocytes % 13.9 %; Mean Corpuscular HGB Conc 33.3 g/dL (30-55); Mean Corpuscular Hemoglobin 28.8 pg (27-33); Mean Corpuscular Volume 86.5 fl (85-98); Mean Platelet Volume 10.2 fL (7.4-10.4); Monocytes # 0.6 10^3/uL (0.2-0.9); Neutrophils # 9.37 10^3/uL (1.8-7.7); Neutrophils % 80.7 %; Nucleated Red Blood Cells % 0 %; Platelet Count 229 10^3/cmm (157-399); Red Blood Count 4.23 10^6/uL (3.85-5.65); Red Cell Distribution Width 12.4 % (12.1-15.1); White Blood Count 11.62 10^3/uL (3.29-11.43)
[2024-04-14 04:51] LABS: HCG, Serum Qual Negative (Negative)
[2024-04-14 04:58] LABS: Alanine Aminotransferase 17 U/L (0-33); Albumin Level 4.4 g/dL (3.5-5.2); Alkaline Phosphatase 55 U/L (35-105); Aspartate Amino Transferase 17 U/L (0-32); Blood Urea Nitrogen 8 mg/dL (6-20); Calcium 9.5 mg/dL (8.5-10.5); Carbon Dioxide 25 mmol/L (22-29); Chloride 96 mmol/L (98-107); Creatinine Clr Calc Pharmacy 154.6281; Glomerular Filtration Rate 154.3 mL/min (90-130); Glucose 117 mg/dL (65-115); Lipase 29 U/L (13-60); Osmolality Calculated 275 mOsm/kg (285-295); Sodium 133 mmol/L (136-145); Total Bilirubin 0.5 mg/dL (0.15-1.2); Total Protein 7.4 g/dL (6.6-8.7)
[2024-04-14 04:59] LABS: Anion Gap 15.2 (5-19); Potassium 3.2 mmol/L (3.5-5.1)
[2024-04-14 05:21] VITALS: RESP 18; O2SAT 100
[2024-04-14 05:38] VITALS: BP 122/72; PULSE 74; RESP 18; O2SAT 98
== END 2024-04-14 05:40 | disposition home or self-care (01) ==
PROVIDERS: Emergency Provider Emergency Medicine; PCP Nurse Practitioner Family
DX: K91.0 Vomiting following gastrointestinal surgery (principal); F17.200 Nicotine dependence, unspecified, uncomplicated
CPT/HCPCS: 74177; 80053; 83690; 84703; 85025; 86140; 96361; 96374; 99285; J2405; J7030; Q9967